=== PATIENT | female | born 1995 | race Two or more races ===

== ENCOUNTER 2017-10-26 10:56 | Emergency (ER) | payer BC ==
[2017-10-26 11:04] VITALS: BMI 23.0
[2017-10-26 11:05] VITALS: BP 104/65; PULSE 86; RESP 18; TEMP 98.5; O2SAT 100
[2017-10-26] MEDS ORDERED: Sodium Chloride 0.9% 1,000 ML IV STA (11:37)
--- NOTE | 2017-10-26 11:45 | ED PDOC ---
HPI: Abdomen Chief Complaint (Provider): Lower abdominal pain History Per: Patient History/Exam Limitations: no limitations Onset/Duration Of Symptoms: Days, Gradual Outside of [place] travel?: No Current Symptoms Are (Timing): Still Present Pain Scale Rating Of: 8 Location Of Pain/Discomfort: Suprapubic Quality Of Discomfort: Sharp Associated Symptoms: Vomiting, Diarrhea. denies: Fever, Chills, Nausea, Loss Of Appetite, Back Pain, Chest Pain, Constipation, Urinary Symptoms Last Bowel Movement: Yesterday <Pam Sunshine - Last Filed: 10/26/17 13:27> Onset/Duration Of Symptoms: Days (1 month) <Jose Raul Mendoza - Last Filed: 10/26/17 14:42> Time Seen by Provider: 10/26/17 11:13 Chief Complaint (Nursing): Abdominal Pain Additional Complaint(s): 22 y/o F with no PMHx presents to ED complaining of intermittent suprapubic/ lower abdominal pain for one month. The pain was mild intensity, and relief with ibuprofen 600 mg once aday, but since this morning is worse, as high as 8/ 10, sharp like sensation, no radiates. Also complaining of 6 episodes of vomits this morning, and many episodes of " orange " non bloody diarrheas. Denies fevers, chills, urinary symptoms, chest pain, SOB. LMP: 10/22/17, still in her menses at this time. Has a Mirena IUD placed 5 years ago. PMD: none (Pam Sunshine) Supervising Attending Note <Pam Sunshine - Last Filed: 10/26/17 13:27> - Supervising Attending Note The Documented history was done by the: Physician Press Catcher The documented physical exam was done by the: Physician Press Catcher The documented procedures were done by the: Physician Press Catcher - Attestation: I have personally seen and examined this patient.: Yes I have fully participated in the care of the patient.: Yes I have reviewed all pertinent clinical information: Yes <Jose Raul Mendoza - Last Filed: 10/26/17 14:42> - Notes: Notes:: Pelvic pain cramps. Diarrhea. (Jose Raul Mendoza) Past Medical History - Immunization History Hx Tetanus Toxoid Vaccination: No Hx Influenza Vaccination: No Hx Pneumococcal Vaccination: No <Pam Sunshine - Last Filed: 10/26/17 13:27> - Medical History PMH: No Chronic Diseases - Family History Family History: States: Unknown Family Hx <Jose Raul Mendoza - Last Filed: 10/26/17 14:42> Vital Signs: Last Vital Signs Temp 98.5 F 10/26/17 11:04 Pulse 86 10/26/17 11:04 Resp 18 10/26/17 11:04 BP 104/65 10/26/17 11:04 Pulse Ox 100 10/26/17 13:29 - Home Medications Home Medications: Ambulatory Orders Medication Instructions Recorded Dicyclomine [Dicyclomine HCl] 10 mg PO DAILY PRN 5 Days cap 10/26/17 Ibuprofen [Motrin] 600 mg PO TID 7 Days tab 10/26/17 - Allergies Allergies/Adverse Reactions: Allergies Allergy/AdvReac Type Severity Reaction Status Date / Time No Known Allergies Allergy Verified 10/26/17 11:34 Review of Systems ROS Statement: Except As Marked, All Systems Reviewed And Found Negative ( PER hpi) Constitutional: Negative for: Fever, Chills, Sweats, Weakness, Malaise, Weight loss <Pam Sunshine - Last Filed: 10/26/17 13:27> Gastrointestinal: Positive for: Nausea, Vomiting, Diarrhea Genitourinary Female: Positive for: Pelvic Pain <Jose Raul Mendoza - Last Filed: 10/26/17 14:42> Physical Exam - Reviewed Nursing Documentation Reviewed: Yes Vital Signs Reviewed: Yes - Physical Exam Appears: Positive for: Non-toxic, No Acute Distress Head Exam: Positive for: ATRAUMATIC, NORMOCEPHALIC Skin: Positive for: Normal Color, Warm, Dry. Negative for: Diaphoresis, Pallor , Jaundice, Mottled, Cyanosis Eye Exam: Positive for: Normal appearance ENT: Positive for: Normal ENT Inspection Neck: Positive for: Normal, Supple Cardiovascular/Chest: Positive for: Regular Rate, Rhythm. Negative for: Chest Non Tender, Edema, Murmur, Bradycardia, Tachycardia Respiratory: Positive for: Normal Breath Sounds. Negative for: Decreased Breath Sounds, Accessory Muscle Use, Crackles, Rales, Rhonchi, Wheezing, Respiratory Distress Gastrointestinal/Abdominal: Positive for: Bowel Sounds (present), Soft, Tenderness (lower abdomen, not rebound tenderness). Negative for: Distended, Guarding, Rebound Back: Positive for: Normal Inspection. Negative for: L CVA Tenderness, R CVA Tenderness Extremity: Negative for: Pedal Edema, Calf Tenderness Neurologic/Psych: Positive for: Alert, Oriented <Pam Sunshine - Last Filed: 10/26/17 13:27> - Physical Exam Gastrointestinal/Abdominal: Positive for: Soft, Tenderness (pelvic across) <Jose Raul Mendoza - Last Filed: 10/26/17 14:42> - Laboratory Results Result Diagrams: 10/26/17 12:12 10/26/17 12:12 - ECG O2 Sat by Pulse Oximetry: 100 <Pam Sunshine - Last Filed: 10/26/17 13:27> - Laboratory Results Result Diagrams: 10/26/17 12:12 10/26/17 12:12 Interpretation Of Abn Labs: no acute - CT Scan/US US Other Rad Studies (CT/US): Read By Radiologist Other Rad Interpretation: no acute <Jose Raul Mendoza - Last Filed: 10/26/17 14:42> - Progress ED Course And Treament: 1430: Stable. AAOx3. Pain free. Tolerated PO. Fu with pcp. (Jose Raul Mendoza) Medical Decision Making <Pam Sunshine - Last Filed: 10/26/17 13:27> <Jose Raul Mendoza - Last Filed: 10/26/17 14:42> Medical Decision Making: Lower abdominal pain -afebrile -preg test -urine dip -check CBC, CMP -TVUS -IV fluids -zofran IV once -Bentyl PO -Toradol 15 mg IV once case discussed with Dr. Mendoza (Pam Sunshine) Disposition <Pam Sunshine - Last Filed: 10/26/17 13:27> - Patient ED Disposition Is Patient to be Admitted: No Counseled Patient/Family Regarding: Studies Performed, Diagnosis, Need For Followup, Rx Given - Disposition Disposition: Routine/Home Disposition Time: 14:40 <Jose Raul Mendoza - Last Filed: 10/26/17 14:42> - Clinical Impression Clinical Impression: Pelvic pain, Diarrhea - Disposition Referrals: [facility] [place] [Outside] - 10/29/17 Condition: STABLE Additional Instructions: Return if not better in 3 days. Prescriptions: Dicyclomine [Dicyclomine HCl] 10 mg PO DAILY PRN 5 Days cap PRN Reason: Diarrhea Ibuprofen [Motrin] 600 mg PO TID 7 Days tab Instructions: Diarrhea in Adolescents and Adults, Acute Pelvic Pain (DC) Forms: [facility] (Korean), [facility] ED School/Work Excuse
[2017-10-26 12:23] LABS: BASO % 0.2 % (0.0-2.0); EOS % 0.3 % (0.0-4.0); LYMPH # 0.6 K/uL (1.0-4.3); LYMPH % 7.2 % (20.0-40.0); MEAN CELL VOLUME 87.3 fl (81.0-99.0); MEAN CORPUSCULAR HEMOGLOBIN 29.5 pg (27.0-31.0); MEAN CORPUSCULAR HGB CONC 33.8 g/dL (33.0-37.0); MONO # 0.5 K/uL (0.0-0.8); MONO % 6.4 % (0.0-10.0); NEUT # 7.2 K/uL (1.8-7.0); NEUT % 85.9 % (50.0-75.0); PLATELET COUNT 247 K/uL (130-400); RBC 4.74 Mil/uL (3.80-5.20); RED CELL DISTRIBUTION WIDTH 13.9 % (11.5-14.5); WHITE BLOOD COUNT 8.4 K/uL (4.8-10.8)
[2017-10-26 12:30] LABS: ALB/GLOB RATIO 1.8 (1.0-2.1); ALBUMIN 5.1 g/dL (3.5-5.0); ALT/SGPT 24 U/L (9-52); AST/SGOT 23 U/L (14-36); BLOOD UREA NITROGEN 11 mg/dl (7-17); CALCIUM 9.8 mg/dL (8.4-10.2); GFR AFRICAN-AMERICAN > 60; GFR NON-AFRICAN AMERICAN > 60
[2017-10-26 13:12] LABS: ANISOCYTOSIS SLIGHT; BANDS 3 % (0-2); GIANT PLATELETS PRESENT; LARGE PLATELETS PRESENT; LYMPHOCYTE 11 % (20-50); MONOCYTE 8 % (0-10); NEUTROPHIL 78 % (42-75); PLATELET ESTIMATE NORMAL (NORMAL); TOTAL CELLS COUNTED 100
--- NOTE | 2017-10-26 14:14 | US ---
HISTORY: Vaginal bleeding COMPARISON: None available. TECHNIQUE: Transvaginal pelvic ultrasound was performed. FINDINGS: UTERUS: Measures 9.1 x 4.7 x 6.2 cm. Anteverted, normal in size and appearance. No fibroid or other mass lesion seen. ENDOMETRIUM: Measures 4.0 mm in diameter. An intrauterine device remains in customary position. CERVIX: No cervical abnormality identified. RIGHT OVARY: Measures 3.3 x 2.0 x 2.6 cm. No solid mass. Normal flow. LEFT OVARY: Measures 3.7 x 1.9 x 2.5 cm. No solid mass. Normal flow. FREE FLUID: No significant free fluid noted. OTHER FINDINGS: None. IMPRESSION: Normal pelvic ultrasound. IUD remains in customary position.
== END 2017-10-26 15:07 | disposition home or self-care (01) ==
LOC: H.ER 10:56
DX: R10.2 Pelvic and perineal pain (principal); R19.7 Diarrhea, unspecified
CPT/HCPCS: 76830; 80053; 81025; 85025; 96361; 96374; 96375; 99284; J1885; J2405; J7030

== ENCOUNTER 2018-02-10 21:42 | Emergency (ER) | payer BC ==
[2018-02-10 21:42] VITALS: BMI 23.0
[2018-02-10 21:56] VITALS: TEMP 98.2
[2018-02-10] MEDS ORDERED: Sodium Chloride 0.9% 1,000 ML IV STA (22:21)
--- NOTE | 2018-02-10 22:46 | ED PDOC ---
HPI: Abdomen Time Seen by Provider: 02/10/18 22:15 Chief Complaint (Nursing): Abdominal Pain History Per: Patient Onset/Duration Of Symptoms: Days Current Symptoms Are (Timing): Still Present Location Of Pain/Discomfort: Epigastric Additional Complaint(s): No PMHx presenting with intractable nausea and vomiting since 1AM last night, states she drank alcohol last night and began vomiting, initially food colored but progressed to clear and now "bile" colored, states she's vomiting every 15 minutes and can't keep anything down. States she has epigastric pain when vomiting as well, no lower abdominal pain, abnormal stools urinary symptoms, fevers. Past Medical History Reviewed: Historical Data, Nursing Documentation, Vital Signs Vital Signs: Last Vital Signs Temp 98.2 F 02/10/18 21:52 Pulse 103 H 02/10/18 21:52 Resp 17 02/10/18 21:52 BP 113/74 02/10/18 21:52 Pulse Ox 97 02/10/18 21:52 - Medical History PMH: No Chronic Diseases - Family History Family History: States: Unknown Family Hx - Immunization History Hx Tetanus Toxoid Vaccination: No Hx Influenza Vaccination: No Hx Pneumococcal Vaccination: No - Home Medications Home Medications: Ambulatory Orders Medication Instructions Recorded Dicyclomine [Dicyclomine HCl] 10 mg PO DAILY PRN 5 Days cap 10/26/17 Ibuprofen [Motrin] 600 mg PO TID 7 Days tab 10/26/17 Ondansetron ODT [Zofran ODT] 4 mg PO Q8 PRN #12 odt 02/11/18 - Allergies Allergies/Adverse Reactions: Allergies Allergy/AdvReac Type Severity Reaction Status Date / Time No Known Allergies Allergy Verified 02/10/18 21:56 Review of Systems ROS Statement: Except As Marked, All Systems Reviewed And Found Negative Constitutional: Negative for: Fever, Chills Gastrointestinal: Positive for: Nausea, Vomiting, Abdominal Pain Physical Exam - Reviewed Nursing Documentation Reviewed: Yes Vital Signs Reviewed: Yes - Physical Exam Appears: Positive for: Well, Non-toxic, No Acute Distress Head Exam: Positive for: ATRAUMATIC, NORMAL INSPECTION, NORMOCEPHALIC Skin: Positive for: Normal Color, Warm, DRY Eye Exam: Positive for: EOMI, Normal appearance, PERRL ENT: Positive for: Normal ENT Inspection Neck: Positive for: Normal, Painless ROM Cardiovascular/Chest: Positive for: Regular Rate, Rhythm Respiratory: Positive for: CNT, Normal Breath Sounds Gastrointestinal/Abdominal: Positive for: Normal Exam, Soft, Tenderness (Epigastric). Negative for: Organomegaly, Mass, Distended, Guarding, Rebound Back: Positive for: Normal Inspection Extremity: Positive for: Normal ROM Neurologic/Psych: Positive for: Alert, Oriented - ECG O2 Sat by Pulse Oximetry: 97 Pulse Ox Interpretation: Normal Medical Decision Making Medical Decision MakinPM Patient presenting with nausea and vomiting --Currently well appearing, slight tachycardia --Likely dehydration, gastroenteritis, and/or sequelae of alcohol abuse --Will give IVF, Zofran, Pepcid, and re-eval 1230AM --PAtient is tolerating PO, feeling much better --Advised bland diet, zofran PRN Disposition - Clinical Impression Clinical Impression: Vomiting - Patient ED Disposition Is Patient to be Admitted: No - Disposition Referrals: [facility] [Outside] Disposition: Routine/Home Disposition Time: 00:36 Condition: IMPROVED Prescriptions: Ondansetron ODT [Zofran ODT] 4 mg PO Q8 PRN #12 odt PRN Reason: Nausea/Vomiting Instructions: Nausea and Vomiting, Adult Forms: [employer] (Azeri)
[2018-02-11 00:43] VITALS: BP 99/69; PULSE 92; RESP 18; O2SAT 99
== END 2018-02-11 01:02 | disposition home or self-care (01) ==
LOC: H.ER 21:42
DX: R11.2 Nausea with vomiting, unspecified (principal)
CPT/HCPCS: 96361; 96374; 96375; 99284; J2405; J7030